=== PATIENT | female | born 1935 | race Caucasian/White ===

== ENCOUNTER 2017-04-11 18:02 | Inpatient (IN) | payer OTHER | END 2017-04-19 14:30 | DRG 480 | LOC: ER 18:02 → EROBS 19:30 → 4N 21:33 → 4E 04-12 08:56 → ICU 04-12 21:57 → 4E 04-14 16:38 | PROC: 30233N1 Transfusion of Nonautologous Red Blood Cells into Peripheral Vein, Percutaneous Approach (ICD-10-PCS; 2017-04-13) | PROC: 0QSB04Z Reposition Right Lower Femur with Internal Fixation Device, Open Approach (ICD-10-PCS; principal; 2017-04-14) | DX: S72.401B Unspecified fracture of lower end of right femur, initial encounter for open fracture type I or II (principal); N17.0 Acute kidney failure with tubular necrosis; R65.11 Systemic inflammatory response syndrome (SIRS) of non-infectious origin with acute organ dysfunction; S42.92XA Fracture of left shoulder girdle, part unspecified, initial encounter for closed fracture; S42.202A Unspecified fracture of upper end of left humerus, initial encounter for closed fracture; D62 Acute posthemorrhagic anemia; E78.00 Pure hypercholesterolemia, unspecified; H40.9 Unspecified glaucoma; H35.30 Unspecified macular degeneration; K21.9 Gastro-esophageal reflux disease without esophagitis; E11.42 Type 2 diabetes mellitus with diabetic polyneuropathy; E11.319 Type 2 diabetes mellitus with unspecified diabetic retinopathy without macular edema; Z96.653 Presence of artificial knee joint, bilateral; N18.9 Chronic kidney disease, unspecified; E87.5 Hyperkalemia; I12.9 Hypertensive chronic kidney disease with stage 1 through stage 4 chronic kidney disease, or unspecified chronic kidney disease; I95.9 Hypotension, unspecified; D69.6 Thrombocytopenia, unspecified; E11.22 Type 2 diabetes mellitus with diabetic chronic kidney disease; E78.5 Hyperlipidemia, unspecified; W10.8XXA Fall (on) (from) other stairs and steps, initial encounter; Z88.6 Allergy status to analgesic agent; Z88.8 Allergy status to other drugs, medicaments and biological substances; Z90.710 Acquired absence of both cervix and uterus; Y93.89 Activity, other specified; Y92.89 Other specified places as the place of occurrence of the external cause; Y99.8 Other external cause status; Z79.1 Long term (current) use of non-steroidal anti-inflammatories (NSAID); Z79.899 Other long term (current) drug therapy ==

== ENCOUNTER 2020-01-29 23:21 | Inpatient (IN) | payer OTHER, MEDICARE ==
[~2020-01-29] VITALS: Ht 177.8 cm; Wt 98.0 kg
[~2020-01-29 23:21] MED LIST: ASPIR 8181 MG PO; CALCIUM 600 +1 EAC1 PO; CENTRUM SILVER1 EAC4 PO; FISH OIL 1,001000 M2 PO; LANTUS SOL100 UNIT/1 SUBQ; LANTUS100 UNIT/M SUBQ; LIPITOR 20 MG T20 M1 PO; LISINOPRIL-HCT1 EACH PO; MACROBID 100 M100 M2 PO; MAGNESIUM500 MG PO; MOBIC7.5 MG PO; MORPHINE SULFAT15 M3 PO; MS CONTIN15 MG PO; NOVOLOG100 UNIT/M SUBQ; PRILOSEC20 MG PO; VITAMIN D1000 UNI1 PO; VITAMIN E; VITAMIN E400 UNIT PO; XALATAN2.5 ML OPHTHALMIC; ZOFRAN ODT8 MG PO
[2020-01-29 23:22] VITALS: BP 200/90
[2020-01-29 23:46] LABS: ABSOLUTE NEUTROPHILS 7.3 thou/uL (1.4-8.2); BASOPHILS 0.5 % (0.0-2.0); EOSINOPHILS 1.3 % (0.0-3.0); HEMATOCRIT 40.7 % (37.0-47.0); HEMOGLOBIN 13.5 gm/dL (12.0-15.0); LYMPHOCYTES 14.9 % (24.0-44.0); MCH 28.5 pg (26.0-34.0); MCHC 33.2 g/dL (28.0-37.0); MCV 85.7 fL (80.0-100.0); MONOCYTES 10.8 % (1.0-8.0); PLATELET COUNT 307 thou/uL (150-400); POLYS 72.5 % (36.0-66.0); RBC 4.75 mil/uL (4.20-5.00); RDW 14.4 % (10.5-14.5); WBC 10.1 thou/uL (4.0-11.0)
[2020-01-29 23:50] LABS: CALCIUM 8.6 mg/dL (8.5-10.1); POTASSIUM 3.7 mmol/L (3.5-5.1)
[2020-01-29 23:55] LABS: ALBUMIN 3.7 g/dL (3.4-5.0); TOTAL BILIRUBIN 0.6 mg/dL (0.2-1.0); TOTAL PROTEIN 7.3 g/dL (6.4-8.2)
[2020-01-30 00:32] LABS: URINE BILIRUBIN NEGATIVE (Negative); URINE BLOOD NEGATIVE (Negative); URINE CLARITY CLEAR; URINE COLOR YELLOW; URINE GLUCOSE-RANDOM* NEGATIVE (Negative); URINE KETONES NEGATIVE (Negative); URINE NITRITE-REFLEX NEGATIVE (Negative); URINE PROTEIN (DIPSTICK) 1+ (Negative); URINE SPECIFIC GRAVITY 1.015 (1.005-1.035); URINE UROBILINOGEN 0.2 E.U./dl (0.2-1.0)
[2020-01-30 00:37] LABS: URINE LEUKOCYTES-REFLEX 1+ (Negative)
[2020-01-30 00:51] LABS: CASTS None Seen /LPF (None Seen); MUCUS None Seen strn/LPF (None Seen); SQUAMOUS None Seen /LPF (0-3)
[2020-01-30 00:52] LABS: BACTERIA-REFLEX None Seen /HPF (None Seen); CRYSTALS None Seen /LPF (None Seen); URINE RBC None Seen /HPF (0-2); URINE WBC-REFLEX 0-5 Rare /HPF (0-5)
[2020-01-30 01:16] VITALS: BP 100/64
[2020-01-30 02:00] VITALS: BP 116/58
[2020-01-30 02:56] VITALS: BP 148/82
--- NOTE | 2020-01-30 03:43 | NUR ---
Admission history and assesmments completed. Careplan initiated. High fall risks, fall precautions in place. Initital Vanco mycin dose started. MRSA swab collected and sent to lab. New onset of Atrial fibrillation per EKG and Tele monitor. Rate controlled. Will continue to monitor, orders to started Cadizem infusion if rhythm persists or if patient symptomatic. Temperature very difficult to obtain after Tylenol given in ED for fever, 95.9 axillary.
--- NOTE | 2020-01-30 06:24 | NUR ---
Magnesium 1.6. Orders received for replacement. Rhythm remains in Afib rate controlled 80 resting. Up to 110's when ambulating.
[2020-01-30 06:41] LABS: CHOLESTEROL 85 mg/dL (<200); HDL CHOLESTEROL 37 mg/dL (>40); LDL CHOLESTEROL 39 mg/dL (<100); TC:HDL 2.3 Ratio (Not establshd); TRIGLYCERIDE 46 mg/dL (<150); VLDL 9 mg/dL (<40)
[2020-01-30 06:44] LABS: SERUM ASSESSMENT Clear
[2020-01-30 07:51] VITALS: BP 149/67
[2020-01-30 07:52] VITALS: BP 140/76; BP 147/72
[2020-01-30] MEDS ORDERED: TIMOLOL MALEATE5 M2 (10:11)
--- NOTE | 2020-01-30 15:26 | NUR ---
INITIAL ASSESSMENT: Consult received. SW reviewed chart and spoke with nursing and attending physician. Pt was admitted from home due to hypoglycemia/syncope/afib. Pt is in Enhanced Isolationt to r/o COVID-19. Pt's test is negative. PT/OT ordered to evaluate pt for discharge needs. SW spoke with pt via phone. Introduced role of SW. Pt is alert/orientated x 4. Pt reports she lives at home alone. 2 steps to enter the house. No steps inside. Prior to admission, pt uses a walker. Pt does not drive. [facility] and has used [facility]. Pt's PCP is Dr. Daniel Goode. SW is following to assist as needed with discharge planning.
--- NOTE | 2020-01-30 17:31 | NUR ---
ASSUMED PATIENT CARE AT 0700. A/O X4. PLEASANT. COVID TEST NEGATIVE. VSS AFEBRILE. AMBULATED IN ROOM WITH WALKER. SLOWLY TOWARDS POC GOALS.
[2020-01-30 19:25] VITALS: BP 148/39
[2020-01-31 01:07] LABS: GLYCOHEMOGLOBIN (HGB A1C) 7.5 % (4.8-5.6)
--- NOTE | 2020-01-31 02:39 | NUR ---
LAB CALLED WITH RESULTS FROM BLOOD CULTURES. POSITIVE FOR GRAM + COCCI. CALLED PROVIDER AND NO NEW ORDERS RECEIVED.
[2020-01-31 05:14] VITALS: BP 150/58
[2020-01-31 06:44] LABS: CREATININE 1.8 mg/dL (0.6-1.0); MAGNESIUM 1.8 mg/dL (1.8-2.4); POTASSIUM 4.2 mmol/L (3.5-5.1)
[2020-01-31 08:09] VITALS: BP 161/59
--- NOTE | 2020-01-31 08:36 | EKG ---
[facility] [place] [address] ELECTROCARDIOGRAM REPORT Name: MARLY FLORES Room #: 362-P ADM IN M.R.#: [id number] Admission: 01/30/20 Attend Phys: Randy Sanchez MD Discharge: Date of : 31 Report #: [id number] THIS REPORT FOR: cc: Daniel Goode MD, Eric K. 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 : 1935 Requested By: Kyle Bell Order Number: [id number] MD: Contreras Diggs Measurements Intervals [place] Rate: 72 P: SD: QRS: -2 QRSD: 93 T: 15 QT: 406 QTc: 445 Interpretive Statements Atrial fibrillation Poor R wave progression Compared to ECG 04/12/2017 08:14:06 Inferior repolarization abnormality is no longer present Atrial fibrillation has replaced sinus rhythm Electronically Signed On 01-31-2020 8:35:12 CDT by Contreras Diggs [email or web address] <ELECTRONICALLY SIGNED> By: Contreras Diggs MD, [facility] 01/31/20 0835 0002 0002 Contreras Diggs MD, [facility] /EPI
--- NOTE | 2020-01-31 11:40 | 2DMMODE ---
[facility] [place] [address] 2 D/M-MODE ECHOCARDIOGRAM Name: MARLY FLORES Room #: 362-P ADM IN M.R.#: [id number] Admission: 01/30/20 Attend Phys: Randy Sanchez MD Discharge: Date of : 31 Report #: [id number] THIS REPORT FOR: cc: Daniel Goode MD, Eric K. MD Lammoglia, Francisco J. MD ~ APPROVED REPORT Study performed: 01/31/2020 10:44:24 EXAM: Comprehensive 2D, Doppler, and color-flow Echocardiogram Patient Location: Bedside Room #: 362 Status: routine BSA: 2.04 HR: 83 bpm BP: 161/59 mmHg Rhythm: NSR Other Information Study Quality: Adequate Technically limited study due to body habitus/flat on back. Indications Atrial Fibrillation Syncope Hx: DM, HTN, HLP. 2D Dimensions IVSd: 13.82 (7-11mm) LVOT Diam: 20.17 (18-24mm) LVDd: 45.65 mm PWd: 12.51 (7-11mm) Ascending Ao: 33.97 (22-36mm) LVDs: 30.04 (25-40mm) Aortic Root: 33.29 mm Volumes Left Atrial Volume (Systole) Single Plane 4CH: 50.11 mL Single Plane 2CH: 44.89 mL LA ESV Index: 24.00 mL/m2 Aortic Valve AoV Peak Guido.: 1.65 m/s AO Peak Gr.: 10.83 mmHg LVOT Max P.09 mmHg [facility] [address] [place] [address] 2 D/M-MODE ECHOCARDIOGRAM Name: MARLY FLORES Room #: 362-P [facility] IN M.R.#: [id number] Admission: 01/30/20 Attend Phys: Randy Sanchez MD Discharge: Date of : 31 Report #: [id number] LVOT Max V: 1.01 m/s DON Vmax: 1.96 cm2 Mitral Valve E/A Ratio: 1.4 MV Decel. Time: 162.72 ms MV E Max Guido.: 1.38 m/s MV A Guido.: 1.01 m/s MV PHT: 47.19 ms IVRT: 55.36 ms Pulmonary Valve PV Peak Guido.: 1.31 m/s PV Peak Gr.: 6.85 mmHg Pulmonary Vein P Vein S: 0.60 m/s P Vein A: 0.35 m/s P Vein D: 0.46 m/s P Vein A Dur.: 124.6 msec P Vein S/D Ratio: 1.30 Tricuspid Valve TR Peak Guido.: 2.62 m/s TR Peak Gr.: 28.00 mmHg Left Ventricle The left ventricle is normal size. There is normal LV segmental wall motion. Mild concentric left ventricular hypertrophy. Left ventricular systolic function is normal. LVEF is 60-65%. Mild diastolic dysfunction is present (impaired relaxation pattern). Right Ventricle The right ventricle is normal size. The right ventricular systolic function is normal. Atria The left atrium size is normal. The right atrium size is normal. Aortic Valve The aortic valve is normal in structure. No aortic regurgitation is present. There is no aortic valvular stenosis. Mitral Valve The mitral valve is normal in structure. Trace mitral regurgitation. No evidence of mitral valve stenosis. [facility] [address] [place] [address] 2 D/M-MODE ECHOCARDIOGRAM Name: MARLY FLORES CHIVO Room #: 362-P [facility] IN .R.#: [id number] Admission: 01/30/20 Attend Phys: Randy Sanchez MD Discharge: Date of : 31 Report #: [id number] Tricuspid Valve The tricuspid valve is normal in structure. Trace tricuspid regurgitation. Estimated PAP is 28mmHg plus the right atrial pressure. Pulmonic Valve The pulmonary valve is normal in structure. Trace pulmonic regurgitation. Great Vessels The aortic root is normal in size. The ascending aorta is normal in size. IVC is not well visualized. Pericardium There is no pericardial effusion. <Conclusion> The left ventricle is normal size. LVEF is 60-65%. The aortic valve is normal in structure. The mitral valve is normal in structure. Trace mitral regurgitation. The tricuspid valve is normal in structure. Trace tricuspid regurgitation. Estimated PAP is 28mmHg plus the right atrial pressure. The pulmonary valve is normal in structure. Trace pulmonic regurgitation. There is no pericardial effusion. <ELECTRONICALLY SIGNED> By: Zach Carlisle MD 01/31/20 1139 1139 1139 Zach Carlisle MD /INF
--- NOTE | 2020-01-31 14:40 | NUR ---
SW reviewed chart and spoke with nursing and attending physician. Pt remains in Enhanced Isolation to r/o COVID-19. Therapy evals on hold at this time. CITLALY is following to assist as needed with discharge planning.
[2020-01-31 16:39] VITALS: BP 169/70
--- NOTE | 2020-01-31 18:05 | NUR ---
1400 TOOK OVER FROM NELSY BARRON AFTER HE WAS TRANSFERED. PT ALERT AND ORIENTED X4, DENIES ANY PAIN AT THE MOMENT. TRANSFERED PT FROM CHAIR TO BED. DENIES ANY DENIES. WILL CONTINUE TO MONITOR.
[2020-01-31 19:12] VITALS: BP 151/42
--- NOTE | 2020-01-31 23:19 | NUR ---
PT SITTING UP IN BED WATCHING TV. PT REPORTS FEELING RESTLESS. AMBULATES TO RESTROOM WITH WALKER. CALLS FOR ASSISTANCE. IV ANTIBIOTICS CONTINUE. VERBALIZED WANTING TO DC IN AM. PRN FOR BLE CHRONIC PAIN PROVIDED.
[2020-02-01 05:36] VITALS: BP 166/63
--- NOTE | 2020-02-01 06:12 | NUR ---
PT REPORTED BEING SOA AFTER RETURNING FROM USING RESTROOM. PT RESTED SHORTLY AND RECOVERED. HR ON TELE -.
[2020-02-01 08:00] VITALS: BP 155/65
[2020-02-01 10:40] LABS: CALCIUM 7.8 mg/dL (8.5-10.1); CREATININE 1.8 mg/dL (0.6-1.0); POTASSIUM 4.7 mmol/L (3.5-5.1)
--- NOTE | 2020-02-01 10:55 | NUR ---
CARE ASSUMED AT 0700, PT ALERT AND ORIENTED X4, DENIES ANY CHEST PAIN, NAUSEA AND VOMITING. PT IS ON ROOM AIR, COMPLAINS OF SOB WITH EXERTION AFTER FROM IT, NO SIGNS OF DISTRESS NOTED. ASSESSMENT AND VITAL SIGNS COMPLETED. CALL LIGHT AND TABLE IN REACH. BED AT LOWEST LEVEL. PT DENIES ANY NEEDS ATIF. WILL CONTINUE TO MONITOR.
--- NOTE | 2020-02-01 12:25 | HC ---
[facility] [place] [address] CONSULTATION Name: MARLY FLORES Room #: 362-P [facility] IN M.R.#: [id number] Admission: 01/30/20 Attend Phys: Randy Sanchez MD Discharge: Date of : 31 Report #: [id number] THIS REPORT FOR: cc: Daniel Goode MD, Eric K. MD Al-Mubaslat, Ahmad MD ~ CC: Daniel Sanchez DATE OF SERVICE: 01/31/2020 ENDOCRINE CONSULTATION NOTE CONSULTING PHYSICIAN: Dr. Chambers. REASON FOR CONSULTATION: Uncontrolled type 2 diabetes mellitus, hypoglycemia. HISTORY OF PRESENT ILLNESS: This is an 84-year-old female patient whose medical background is significant for multiple medical issues including type 2 diabetes mellitus, hypertension, hyperlipidemia, GERD, chronic kidney disease, who presented yesterday with a syncopal episode in the context of severe hypoglycemia. The patient has been a diabetic for over 30 years and is currently maintained on a combination of Lantus insulin 34 units q.p.m. in addition to NovoLog insulin at a dose of 12, 18, 24 units before breakfast, lunch and supper respectively. The patient notes that she has been able to maintain her blood glucose values for the most part between 80 and 150 mg/dL. She describes occasional hypoglycemia that is rarely below 70 and that typically occurs overnight and occasionally after breakfast. The patient has consistently experienced hypoglycemic symptoms, which enabled her to respond to these episodes. She does not recall having had a similar experience with hypoglycemia in the sense of syncopizing due to that. Her diabetic disease course has been marked by diabetic retinopathy requiring bilateral surgeries, chronic kidney disease, currently with the serum creatinine that is stable around 1.8, as well as significant issues with peripheral neuropathy affecting both hands and feet that are being managed by tramadol at home. The patient is not known to have coronary artery disease in the past. REVIEW OF SYSTEMS: CONSTITUTIONAL: Fatigue, tiredness. The patient was recorded as having a fever on admission. HEENT: Negative for sore throat, sinus pain, ear drainage. PULMONARY: Occasional shortness of breath and cough, but not hemoptysis. CARDIAC: Negative for chest pain, palpitations, but noted for syncope. [facility] [address] [place] [address] CONSULTATION Name: MARLY FLORES Room #: 362-[facility] IN M.R.#: [id number] Admission: 01/30/20 Attend Phys: Randy Sanchez MD Discharge: Date of : 31 Report #: [id number] GASTROINTESTINAL: Occasional abdominal discomfort and nausea, but not vomiting. NEUROLOGY: Baseline peripheral diabetic neuropathy affecting hands and feet, but not seizure activity or severe frequent headaches. PSYCHIATRIC: Negative for delusions, hallucinations. SKIN: Negative for rash, ulceration or other major changes. Otherwise, review of systems noncontributory other than those mentioned in HPI. PAST MEDICAL HISTORY: 1. Type 2 diabetes mellitus. 2. Hypertension. 3. Hyperlipidemia. 4. GERD. 5. Obesity. 6. Diabetic peripheral neuropathy. 7. Diabetic retinopathy. 8. Chronic kidney disease, baseline serum creatinine of 1.8. 9. Glaucoma. 10. Macular degeneration. 11. Osteoarthritis. OUTPATIENT MEDICATIONS: Include: 1. NovoLog insulin at a dose of 12, 18, 24 units before breakfast, lunch and supper, Lantus insulin 34 units q.p.m. 2. Prilosec 20 mg daily. 3. Lisinopril/hydrochlorothiazide 10-12.5 mg daily. 4. Atorvastatin 20 mg daily. 5. Magnesium oxide 250 b.i.d. 6. Xalatan 0.005% ophthalmic solution. 7. Caltrate 600/vitamin D daily. 8. Vitamin E daily. ALLERGIES: She is allergic to HYDROCODONE and METFORMIN. FAMILY HISTORY: Noncontributory. SOCIAL HISTORY: She lives with her daughter. She denies use of tobacco, alcohol or illicit drugs. PHYSICAL EXAMINATION: GENERAL: Pleasant female patient who is not in apparent pain or distress. VITAL SIGNS: Blood pressure is 161/59 mmHg, heart rate is 83 beats per minute, respirations 16 per minute, temperature 36.7 degrees Celsius. CONSTITUTIONAL: The patient is sitting upright, appears comfortable, not in apparent distress. HEENT: Anicteric sclerae. Intact extraocular motions. [address] [address] CONSULTATION Name: MARLY FLORES Room #: 362-P [facility] IN ..#: [id number] Admission: 01/30/20 Attend Phys: Randy Sanchez MD Discharge: Date of : 33 Report #: [id number] NECK: Supple, without thyromegaly. CHEST: Noted for moderate air entry bilaterally. Scattered rales. No wheeze or crackles. HEART: Regular rate and rhythm without murmurs or gallops. ABDOMEN: Soft, lax, no tenderness, no organomegaly. Active bowel sounds. EXTREMITIES: Lower extremity exam, trace ankle edema. No skin breaks, ulcerations. Pedal pulses are appreciated. NEUROLOGIC: Awake, alert and oriented to time, place and person. The remainder of her examination is largely nonfocal other than for peripheral sensory deficits. PSYCHIATRIC: Pleasant, interactive. Normal mood, normal affect. Normal thought process. LABORATORY RESULTS: Blood glucose on arrival was 41, then 56 at about noon yesterday, although 8-9 p.m. she maintained blood glucose over 300 mg/dL; this morning, she was at 86 mg/dL and most recently before lunch 245 mg/dL. Sodium 140, potassium 4.2, chloride 106, CO2 of 24, anion gap 10, BUN 36, creatinine 1.8, AST 18, total bilirubin 0.6, calcium 8.0, phosphorus 3.7, magnesium 1.8, alkaline phosphatase 62, ALT 24, total protein 7.3, albumin 3.7, EGFR 27, lactic acid 1.2. Total cholesterol 85, triglycerides 46, HDL 37, LDL 39. INR 1.0. White blood count 10.1, hemoglobin 13.5, hematocrit 40.7, platelets 307. Hemoglobin A1c 7.5%. ASSESSMENT AND PLAN: 1. Type 2 diabetes mellitus. As noted above, the patient has had longstanding type 2 diabetes mellitus with multiple end-organ complications. She has maintained reasonably controlled blood glucose outlook; however, at the expense of what sounds like frequent mild to moderate hypoglycemia. As noted above, the patient presents primarily due to severe hypoglycemic event. The patient and I had a lengthy discussion about the importance of achieving adequate glycemic control to avoid diabetic complications, but at the same token that of avoiding severe hypoglycemia. It is noticeable that her blood glucose values have fallen steeply from last night following the administration of Lantus 36 units. I pointed that out and I explained that I would feel much more comfortable changing her Lantus insulin to a morning intake, so as to avoid nocturnal hypoglycemia and to drop it down to 28 units. We can start this program as of tomorrow. Also, along the lines of reducing her risk for hypoglycemia, I will taper down her meal coverage to 8 units t.i.d. a.c., while in the hospital and have her drop it down about 10-20% of her usual doses at home when she resumes her usual p.o. intake. I stressed the point that avoiding severe hypoglycemia is a pace priority even if it means settling for higher than standard hemoglobin A1c target, which she understands well. 2. Hypoglycemia. This is due to therapeutic insulin intake. As noted above, insulin dose adjustments will be made to avoid similar occurring in the future. [facility] [address] [place] [address] CONSULTATION Name: MARLY FLORES Room #: 362-P [facility] IN ..#: [id number] Admission: 01/30/20 Attend Phys: Randy Sanchez MD Discharge: Date of : 33 Report #: [id number] 3. Hypertension. The patient's level of blood pressure control is marginal, the primary hospital team is adjusting her antihypertensive regimen as needed. 4. Hyperlipidemia. The patient's lipid control is adequate on the current atorvastatin therapy, she is to continue with the same. I certainly appreciate this consultation by Dr. Chambers. <ELECTRONICALLY SIGNED> By: Favio Angulo MD 02/01/20 1225 1246 [id number] MD fernando Vargas
--- NOTE | 2020-02-01 13:30 | NUR ---
SW reviewed chart and spoke with nursing and attending physician. Pt is progressing towards goals for discharge. Discharge home is anticipated in 1-2 days. Pt started on Eliquis per cardiology. PT/OT working with pt to evaluate for discharge needs. Plan is for pt to d/c home when medically stable. SW is following to assist as needed with discharge planning.
[2020-02-01 16:39] VITALS: BP 135/45
[2020-02-01 21:22] VITALS: BP 153/39
--- NOTE | 2020-02-01 23:41 | NUR ---
COVID RESULT WAS NEGATIVE ON 01/29 1240 PM.
[2020-02-02 03:32] VITALS: BP 144/50
--- NOTE | 2020-02-02 05:42 | NUR ---
PT UP TO BATHROOM WITH SBA AND WALKER. ONLY COMPLAINT WAS KNEE PAIN. GAVE TRAMADOL X2 OVERNIGHT. LOST IV ACCESS IN LEFT WRIST. REESTABLISHED IV ACCESS IN LEFT UNDER FOREARM 22GA. VSS, NO FEVER. TELE SHOW SR, ALSO AT TIMES AFIB. PT ALSO MADE A COMMENT ABOUT HER FALL THAT SHE HIT HER HEAD. WAS WONDERING IF THAT WAS CAUSING HER HEADACHE? WILL PASS THAT INFORMATION ALONG TO ON COMING SHIFT.
[2020-02-02 07:45] VITALS: BP 141/41
--- NOTE | 2020-02-02 10:08 | NUR ---
DISCHARGE NOTE: CITLALY reviewed chart and spoke with nursing. Pt is medically stable for discharge home today. Pt to have CT of her head prior to discharge due to recent fall. Pt to be discharged home on Eliquis. CITLALY faxed Eliquis prescription discount cards to pt's nurse to provide pt. No additional SW needs identified at this time, but is available to assist should needs arise.
[2020-02-02 11:59] VITALS: BP 129/43
[2020-02-02] MEDS ORDERED: ELIQUIS2.5 MG PO (13:11)
[2020-02-02] MEDS ORDERED: METOPROLOL SUCC25 M1 PO (13:13)
[2020-02-02] MEDS ORDERED: LANTUS SOL100 UNIT/1 SUBQ (13:16)
[2020-02-02] MEDS ORDERED: NOVOLOG100 UNIT/M SUBQ (13:17)
[2020-02-02 13:38] VITALS: BP 129/43
[2020-02-02 14:13] VITALS: BP 129/43
--- NOTE | 2020-02-02 15:25 | NUR ---
PT WILL DISCHARGE HOME WITH DAUGHTER...INSTRUCTIONS REVIEWED OVER PHONE WITH DAUGHTER AND IN PERSON WITH PATIENT...
== END 2020-02-02 15:57 | disposition home or self-care (01) | DRG 871 ==
LOC: ER 23:21 → EROBS 01-30 01:07 → 3W 01-30 01:07
PROVIDERS: Emergency Medicine; Nurse Practitioner; Nurse Practitioner Family; ADMIT Hospitalist; ATTEND Hospitalist
DX: A41.9 Sepsis, unspecified organism (principal); J18.9 Pneumonia, unspecified organism; G93.41 Metabolic encephalopathy; N39.0 Urinary tract infection, site not specified; N17.9 Acute kidney failure, unspecified; N18.4 Chronic kidney disease, stage 4 (severe); E11.649 Type 2 diabetes mellitus with hypoglycemia without coma; B95.1 Streptococcus, group B, as the cause of diseases classified elsewhere; I48.91 Unspecified atrial fibrillation; B96.89 Other specified bacterial agents as the cause of diseases classified elsewhere; E11.22 Type 2 diabetes mellitus with diabetic chronic kidney disease; K21.9 Gastro-esophageal reflux disease without esophagitis; E78.00 Pure hypercholesterolemia, unspecified; E11.319 Type 2 diabetes mellitus with unspecified diabetic retinopathy without macular edema; E11.42 Type 2 diabetes mellitus with diabetic polyneuropathy; Z96.653 Presence of artificial knee joint, bilateral; E78.5 Hyperlipidemia, unspecified; E66.9 Obesity, unspecified; H35.30 Unspecified macular degeneration; M19.90 Unspecified osteoarthritis, unspecified site; G47.00 Insomnia, unspecified; E83.42 Hypomagnesemia; M81.0 Age-related osteoporosis without current pathological fracture; E04.9 Nontoxic goiter, unspecified; Z20.828 Contact with and (suspected) exposure to other viral communicable diseases; Z79.01 Long term (current) use of anticoagulants; Z79.4 Long term (current) use of insulin; Z90.710 Acquired absence of both cervix and uterus; Z87.81 Personal history of (healed) traumatic fracture; Z88.8 Allergy status to other drugs, medicaments and biological substances; Z88.6 Allergy status to analgesic agent; Z68.31 Body mass index [BMI] 31.0-31.9, adult
CPT/HCPCS: 10879

== ENCOUNTER → 2020-02-07 | Outpatient (CLI) | payer OTHER, MEDICARE ==
[~2020-02-07] MED LIST changes: +ELIQUIS2.5 MG PO; +METOPROLOL SUCC25 M1 PO; +TIMOLOL MALEATE5 M2
== END ==
LOC: SJCVCIMAG 13:54
PROVIDERS: ATTEND Internal Medicine
DX: I49.3 Ventricular premature depolarization (principal); I48.91 Unspecified atrial fibrillation; K21.9 Gastro-esophageal reflux disease without esophagitis; E11.22 Type 2 diabetes mellitus with diabetic chronic kidney disease; I12.9 Hypertensive chronic kidney disease with stage 1 through stage 4 chronic kidney disease, or unspecified chronic kidney disease; N18.9 Chronic kidney disease, unspecified; Z79.4 Long term (current) use of insulin; Z79.899 Other long term (current) drug therapy

== ENCOUNTER → 2020-05-18 | Outpatient (CLI) | payer OTHER, MEDICARE | LOC: SJCVCIMAG 10:15 | PROVIDERS: ATTEND Internal Medicine | DX: I70.203 Unspecified atherosclerosis of native arteries of extremities, bilateral legs (principal); R09.89 Other specified symptoms and signs involving the circulatory and respiratory systems; M79.89 Other specified soft tissue disorders; Z95.820 Peripheral vascular angioplasty status with implants and grafts ==

== ENCOUNTER → 2020-05-29 | Outpatient (CLI) | payer OTHER, MEDICARE | LOC: SJCVC 08:25 | PROVIDERS: ATTEND Nuclear Medicine Nuclear Cardiology | DX: I73.9 Peripheral vascular disease, unspecified (principal); I25.10 Atherosclerotic heart disease of native coronary artery without angina pectoris; I48.0 Paroxysmal atrial fibrillation; E11.22 Type 2 diabetes mellitus with diabetic chronic kidney disease; I12.9 Hypertensive chronic kidney disease with stage 1 through stage 4 chronic kidney disease, or unspecified chronic kidney disease; N18.30 Chronic kidney disease, stage 3 unspecified; Z79.4 Long term (current) use of insulin; Z79.899 Other long term (current) drug therapy ==

== ENCOUNTER → 2021-06-18 | Outpatient (CLI) | payer OTHER, MEDICARE | LOC: SJCVCIMAG 08:29 | PROVIDERS: ATTEND Nuclear Medicine Nuclear Cardiology | DX: I70.203 Unspecified atherosclerosis of native arteries of extremities, bilateral legs (principal); I65.23 Occlusion and stenosis of bilateral carotid arteries; I87.2 Venous insufficiency (chronic) (peripheral); I25.10 Atherosclerotic heart disease of native coronary artery without angina pectoris; E11.22 Type 2 diabetes mellitus with diabetic chronic kidney disease; I48.0 Paroxysmal atrial fibrillation; E78.00 Pure hypercholesterolemia, unspecified; I12.9 Hypertensive chronic kidney disease with stage 1 through stage 4 chronic kidney disease, or unspecified chronic kidney disease; N18.30 Chronic kidney disease, stage 3 unspecified; K21.9 Gastro-esophageal reflux disease without esophagitis; E78.5 Hyperlipidemia, unspecified; Z79.899 Other long term (current) drug therapy; Z88.5 Allergy status to narcotic agent; Z88.8 Allergy status to other drugs, medicaments and biological substances; Z82.49 Family history of ischemic heart disease and other diseases of the circulatory system; Z79.4 Long term (current) use of insulin ==